=== PATIENT | female | born 1940 | race Hispanic/Latino ===

== ENCOUNTER 2017-11-18 14:57 | Emergency (ER) | payer MEDICARE ==
[2017-11-18 14:57] VITALS: BMI 38.9
[2017-11-18 15:08] VITALS: RESP 18; TEMP 98.3; O2SAT 96
--- NOTE | 2017-11-18 15:52 | ED PDOC ---
HPI: Hypertension/Hypotension Time Seen by Provider: 11/18/17 15:32 Chief Complaint (Nursing): High Blood Pressure Chief Complaint (Provider): High blood pressure History Per: Patient History/Exam Limitations: no limitations Onset/Duration Of Symptoms: Days Additional Complaint(s): Pt. went to the pcp office Dr. Watters for routine check up. Pt BP was 250/110 there so sent to the ED. Pt. denies any chest pain, dyspnea, weakness, numbness , tingles, headaches, dizziness, neck pain, nausea, vomit. No symptoms currently. Past Medical History Reviewed: Nursing Documentation, Vital Signs Vital Signs: Last Vital Signs Temp 98.3 F 11/18/17 15:05 Pulse 81 11/18/17 15:05 Resp 18 11/18/17 15:05 BP 152/77 H 11/18/17 15:05 Pulse Ox 96 11/18/17 15:05 - Medical History PMH: Diabetes, HTN, Hypercholesterolemia Other PMH: hiatal hernia - Surgical History Surgical History: No Surg Hx - Family History Family History: States: Unknown Family Hx - Living Arrangements Living Arrangements: With Family - Social History Current smoker - smoking cessation education provided: No Alcohol: None Drugs: Denies - Home Medications Home Medications: Ambulatory Orders Medication Instructions Recorded Metformin HCl [Glucophage] 250 mg PO BID 03/05/16 - Allergies Allergies/Adverse Reactions: Allergies Allergy/AdvReac Type Severity Reaction Status Date / Time No Known Allergies Allergy Unverified 11/18/17 15:08 Review of Systems ROS Statement: Except As Marked, All Systems Reviewed And Found Negative Physical Exam - Reviewed Nursing Documentation Reviewed: Yes Vital Signs Reviewed: Yes - Physical Exam Appears: Positive for: Well, Non-toxic, No Acute Distress Head Exam: Positive for: ATRAUMATIC, NORMAL INSPECTION, NORMOCEPHALIC Skin: Positive for: Normal Color, Warm, DRY Eye Exam: Positive for: EOMI, Normal appearance, PERRL ENT: Positive for: Normal ENT Inspection Neck: Positive for: Normal, Painless ROM Cardiovascular/Chest: Positive for: Regular Rate, Rhythm Respiratory: Positive for: CNT, Normal Breath Sounds Gastrointestinal/Abdominal: Positive for: Normal Exam, Bowel Sounds, Soft. Negative for: Tenderness Back: Positive for: Normal Inspection. Negative for: L CVA Tenderness, R CVA Tenderness Extremity: Positive for: Normal ROM. Negative for: Tenderness, Pedal Edema Neurologic/Psych: Positive for: Alert, mail room clerk II-XII, Oriented. Negative for: Motor/Sensory Deficits, Aphasia, Facial Droop - Laboratory Results Result Diagrams: 11/18/17 16:11 11/18/17 16:11 Interpretation Of Abn Labs: no acute - ECG ECG: Positive for: Interpreted By Me, Viewed By Me ECG Rhythm: Positive for: Nonspecific Changes (similar to old( no old EKG, but nuclear scan description describes old EKG and similar changes described as current EKG)) O2 Sat by Pulse Oximetry: 96 Pulse Ox Interpretation: Normal - Progress ED Course And Treament: 1634: Stable. AAOx3. Pain free. Tolerated PO. Fu with pcp. Ambulated with no issue. Disposition - Clinical Impression Clinical Impression: Hypertension - Patient ED Disposition Is Patient to be Admitted: No Counseled Patient/Family Regarding: Studies Performed, Diagnosis, Need For Followup - Disposition Referrals: John Watters MD [Staff Provider] - 11/19/17 Disposition: Routine/Home Disposition Time: 16:36 Condition: STABLE Additional Instructions: Return if not better in 3 days. Instructions: Hypertension (ED)
[2017-11-18 16:24] LABS: BASO % 0.6 % (0.0-2.0); EOS # 0.1 K/uL (0.0-0.7); EOS % 1.9 % (0.0-4.0); HEMATOCRIT 40.6 % (34.0-47.0); LYMPH # 1.3 K/uL (1.0-4.3); MEAN CELL VOLUME 91.6 fl (81.0-99.0); MEAN CORPUSCULAR HEMOGLOBIN 29.3 pg (27.0-31.0); MONO # 0.5 K/uL (0.0-0.8); MONO % 7.4 % (0.0-10.0); NEUT # 5.2 K/uL (1.8-7.0); NEUT % 72.1 % (50.0-75.0); NRBC % 0.2 % (0.0-0.0); WHITE BLOOD COUNT 7.1 K/uL (4.8-10.8)
[2017-11-18 16:27] LABS: BLOOD UREA NITROGEN 22 mg/dl (7-17); CALCIUM 9.1 mg/dL (8.4-10.2); CARBON DIOXIDE 30 mmol/L (22-30); CHLORIDE 103 mmol/L (98-107); GFR AFRICAN-AMERICAN > 60; GLUCOSE,RANDOM 111 mg/dL (65-105); POTASSIUM 4.1 MMOL/L (3.6-5.0); SODIUM 142 mmol/l (132-148)
[2017-11-18 17:30] VITALS: PULSE 84
[2017-11-18 17:31] VITALS: BP 150/71
--- NOTE | 2017-11-19 09:31 | CARD ---
APPROVED REPORT EKG Measurement Heart [id number] <Conclusion> Sinus bradycardia with sinus arrhythmia Left axis deviation Left ventricular hypertrophy with repolarization abnormality Cannot rule out Septal infarct, age undetermined Abnormal ECG
== END 2017-11-18 17:30 | disposition home or self-care (01) ==
LOC: H.ER 14:57
DX: I10 Essential (primary) hypertension (principal); R07.89 Other chest pain; E11.9 Type 2 diabetes mellitus without complications; E78.00 Pure hypercholesterolemia, unspecified